=== PATIENT | male | born 1965 | race Caucasian/White ===

== ENCOUNTER → 2018-04-17 17:53 | Outpatient (CLI) | payer MEDICARE, SELFPAY ==
[2018-04-17 19:47] LABS: Amphetamine/Metha Screen,Urine Negative ng/mL (<1000); Barbiturates Screen,Urine Negative ng/mL (<200); Benzodiazepines Screen,Urine Negative ng/mL (<200); Cannabinoid Screen,Urine Negative ng/mL (<50); Cocaine Screen,Urine Negative ng/mL (<300); Methadone Screen,Urine Negative ng/mL (<300); Opiate Screen,Urine Negative ng/mL (<300); Phencyclidine Screen,Urine Negative ng/mL (<25)
== END ==
PROVIDERS: Visit Provider Physician Assistant
DX: G40.909 Epilepsy, unspecified, not intractable, without status epilepticus (principal)
CPT/HCPCS: 80305

== ENCOUNTER → 2021-02-14 15:14 | Outpatient (CLI) | payer MEDICARE, SELFPAY ==
--- NOTE | 2021-02-14 15:21 | XR_ITS ---
PROCEDURE: XR RIBS LT MIN 3V W CXR1V CLINICAL INDICATION: left rib pain s/p fall Fall with injury and pain COMPARISON: No exams were available for comparison FINDINGS: Frontal view of the chest shows no acute finding. Multiple views of the left ribs shows no evidence displaced fracture dislocation, lytic, or blastic change. Incidental note is made some curvilinear calcification along the humeral head medially. IMPRESSION: No acute findings. Dictated by: Jamaal Dillon MD 02/14/2021 16:02 Jamaal Dillon MD in OV 02/14/2021 16:02
[2021-02-14 16:13] LABS: Basophils # 0.1 K/mm3 (0-0.2); Basophils % 0.9 % (0.1-2.0); Eosinophils # 0.2 K/mm3 (0.0-0.4); Eosinophils % 2.5 % (0.1-12.0); Hematocrit 42.6 % (42.0-52.0); Hemoglobin 14.1 g/dL (14.1-18.0); Lymphocytes # 2.3 K/mm3 (0.7-4.5); Lymphocytes % 35.5 % (10-50); Mean Corpuscular Volume 100.1 fl (80-94); Mean Platelet Volume 8.3 fl (7.4-10.4); Monocytes # 0.3 K/mm3 (0.1-1.0); Neutrophils # 3.7 K/mm3 (1.8-7.8); Neutrophils % 56.1 % (37.0-80.0); Platelet Count 220 K/mm3 (142-424); Red Blood Count 4.26 M/mm3 (4.60-6.20); Red Cell Distribution Width 12.8 % (11.5-17.5); White Blood Count 6.6 K/mm3 (4.8-10.8)
[2021-02-14 18:13] LABS: Alanine Aminotransferase 12 U/L (12-78); Albumin Level 4.5 g/dl (3.5-5.0); Albumin/Globulin Ratio 1.4 (1.1-1.8); Alkaline Phosphatase 81 U/L (38-126); Anion Gap 14.3 mEq/L (5-15); Aspartate Amino Transferase 23 U/L (17-59); Bilirubin,Total 0.6 mg/dl (0.2-1.3); Blood Urea Nitrogen 10 mg/dl (9-20); Calcium 9.1 mg/dl (8.4-10.2); Carbamazepine (Tegretol) 7.2 ug/ml (4.0-12.0); Carbon Dioxide 29 mmol/L (22.0-30.0); Chloride 100 mmol/L (98-107); Estimated Glomerular Filt Rate 117 ml/min (>60); GFR (African American) 141 ML/MIN (>60); Globulin 3.2 g/dL (1.3-3.2); Glucose 100 mg/dl (74-100); Phenytoin (Dilantin) 19.3 ug/ml (10-20); Potassium 4.3 mmoL/L (3.5-5.1); Sodium 139 mmol/L (136-145); Total Protein,Serum 7.7 g/dl (6.3-8.2)
[2021-02-14 18:38] LABS: Prostate Specific Ag Screen 0.7 ng/ml (0.0-4.0)
[2021-02-15 10:51] LABS: Vitamin B12 185 pg/mL (239-931)
[2021-02-15 10:56] LABS: Folate 4.06 ng/mL
[2021-02-18 16:13] LABS: Levetiracetam (Keppra) <1.0 ug/mL (10.0-40.0)
== END ==
PROVIDERS: Visit Provider Physician Assistant
DX: G40.909 Epilepsy, unspecified, not intractable, without status epilepticus (principal); Z12.5 Encounter for screening for malignant neoplasm of prostate; M54.12 Radiculopathy, cervical region; F41.9 Anxiety disorder, unspecified; R07.81 Pleurodynia; R89.9 Unspecified abnormal finding in specimens from other organs, systems and tissues
CPT/HCPCS: 71101; 80053; 80156; 80177; 80185; 82607; 82746; 84443; 85025; G0103

== ENCOUNTER → 2021-04-28 13:05 | Outpatient (CLI) | payer MEDICARE, SELFPAY | PROVIDERS: PCP Physician Assistant; Visit Provider Nurse Practitioner | DX: Z20.822 Contact with and (suspected) exposure to COVID-19 (principal) | CPT/HCPCS: C9803; U0003; U0005 ==

== ENCOUNTER → 2021-05-05 16:10 | Outpatient (CLI) | payer MEDICARE, SELFPAY | PROVIDERS: PCP Physician Assistant; Visit Provider Nurse Practitioner | DX: Z20.822 Contact with and (suspected) exposure to COVID-19 (principal) | CPT/HCPCS: C9803; U0003; U0005 ==

== ENCOUNTER → 2021-07-13 17:35 | Outpatient (CLI) | payer MEDICARE, SELFPAY ==
[2021-07-13 18:50] LABS: Amphetamine/Metha Screen,Urine Negative ng/ml (<1000)
[2021-07-13 18:51] LABS: Barbiturates Screen,Urine Negative ng/ml (<200); Benzodiazepines Screen,Urine Positive ng/ml (<200)
[2021-07-13 18:52] LABS: Cannabinoid Screen,Urine Negative ng/ml (<50)
[2021-07-13 18:53] LABS: Cocaine Screen,Urine Negative ng/ml (<300); Methadone Screen,Urine Negative ng/ml (<300)
[2021-07-13 18:54] LABS: Opiate Screen,Urine Negative ng/ml (<300); Phencyclidine Screen,Urine Negative ng/ml (<25)
== END ==
LOC: LAB.DROPOF 17:36
PROVIDERS: Visit Provider Physician Assistant
DX: M54.12 Radiculopathy, cervical region (principal)
CPT/HCPCS: 80305

== ENCOUNTER → 2021-09-27 16:01 | Outpatient (CLI) | payer MEDICARE, SELFPAY | PROVIDERS: Visit Provider Internal Medicine Gastroenterology | DX: Z01.812 Encounter for preprocedural laboratory examination (principal); Z11.52 Encounter for screening for COVID-19; Z12.11 Encounter for screening for malignant neoplasm of colon | CPT/HCPCS: C9803; U0003; U0005 ==

== ENCOUNTER 2021-09-29 08:55 | Day surgery (SDC) | payer MEDICARE, SELFPAY ==
[2021-09-22 09:52] VITALS: BMI 23.3
[2021-09-29 09:07] VITALS: BP 121/61; PULSE 65; RESP 18; TEMP 36.3; O2SAT 98
--- NOTE | 2021-09-29 09:51 | P.PN_ITS ---
[facility] Anesthesia Checklist - Patient Identification Patient Identification: Arm Band - Structural Data Admitted From: Home Planned Operative Procedure/s: colonoscopy Consent for Planned Operative Procedure(s) Verified: Yes Verified Documents: Surgical Consent, History and Physical - NPO Status Verified Time NPO: 00:00 - Additional verifications Anesthesia Reactions: No - Airway Assessment C-Spine Mobility Assessed: Yes (mp2) TMJ Mobility Assessed: Yes Dentition: Good Dentition - Neurological Assessment Level of Consciousness: Awake, Alert - Anesthesia Plan Anesthesia Risk discussed: Yes Anesthesia Plan: Verified ASA Class: II Anesthesia Type: MAC [facility] History I have reviewed the patient's past medical history: Yes Medical History: Reports:: Anxiety, Migraine, Seizures Denies:: Cancer, Diabetes Mellitus Type 1, Diabetes Mellitus Type 2, Internal Pacemaker, MRSA *Have you ever received a pneumonia vaccine?: No *Have you received a flu vaccine this season?: No Anesthesia experience/problems:: nac Laterality Cases: Right: Arthroscopy Knee Other Surgeries: Yes: Cholecystectomy, Colonoscopy. No: Pacemaker Amputation: No Fractures: No - *Social History Last grade of school completed: GED Smoking Status: Current every day smoker Tobacco Type: cigarettes # Packs/Day (cigarettes): 1 Alcohol Intake: never Substance Use Type: denies use *Occupational Status:: disabled Housing: house Household Members: spouse *Travel in the last 8 weeks: None - Psychiatric History Pschychiatric History:: Reports:: Anxiety Family Hx:: Cancer
[2021-09-29 09:53] VITALS: O2SAT 98
--- NOTE | 2021-09-29 10:10 | HMH.SCOPE ---
- Procedure: Date: 09/29/21 Patient Date of :: 1965 Procedure Performed:: Colonoscopy and snare polypectomy Indications:: Rectal bleeding Performing Provider:: Serena Recio MD Referring Provider:: Junie Mason PA-C Sedation:: Propofol Procedure:: After placing the patient in the left lateral decubitus position, the colonoscopy was gently inserted into the rectum and under direct visualization advanced to the cecum which was identified by transillumination in the right lower quadrant, identification of the ileocecal valve, appendiceal orifice, and cecal strap. Color, texture, mucosa, and anatomy of the colon were carefully examined with the scope. Findings:: Anal canal: normal, prolapsing hemorrhoids Rectum: normal Sigmoid colon: normal without polyps or inflammatory changes Descending colon: 0.6 cm adenomatous polyp snared and removed Splenic flexure: normal Transverse colon: normal without polyps or inflammatory changes Hepatic flexure: normal Ascending colon: normal without polyps or inflammatory changes Cecum: normal Terminal ileum: not visualized Impression : Polyp of descending colon Prolapsing external hemorrhoids Specimens:: Polyp of descending colon Recommendations:: Repeat colonoscopy exam in about THREE years or so, sooner if clinically indicated Complications:: None Estimated blood obtained (mL): 0
[2021-09-29 10:11] VITALS: BP 88/54; PULSE 60; RESP 16; TEMP 36.1; O2SAT 96
[2021-09-29 10:21] VITALS: BP 129/64; PULSE 65; RESP 16; TEMP 36.1; O2SAT 98
[2021-09-29 10:31] VITALS: BP 133/75; PULSE 59; RESP 16; TEMP 36.1; O2SAT 99
[2021-09-29 10:54] VITALS: BP 126/79; PULSE 58; RESP 16; TEMP 36.1; O2SAT 98
== END 2021-09-29 10:54 | disposition home or self-care (01) ==
LOC: OUTP 08:57
PROVIDERS: PCP Physician Assistant; Visit Provider Internal Medicine Gastroenterology
PROC: 0DJD8ZZ Inspection of Lower Intestinal Tract, Via Natural or Artificial Opening Endoscopic (ICD-10-PCS; CPT 45378; principal; 2021-09-29 10:00)
DX: K63.5 Polyp of colon (principal); K64.9 Unspecified hemorrhoids; K62.5 Hemorrhage of anus and rectum; Z88.8 Allergy status to other drugs, medicaments and biological substances; Z79.899 Other long term (current) drug therapy; R56.9 Unspecified convulsions
CPT/HCPCS: 45385; 88305

== ENCOUNTER → 2022-01-25 19:25 | Outpatient (CLI) | payer MEDICARE, SELFPAY ==
[2022-01-25 15:57] LABS: Alanine Aminotransferase 12 U/L (12-78); Albumin Level 4.2 g/dl (3.5-5.0); Albumin/Globulin Ratio 1.6 (1.1-1.8); Alkaline Phosphatase 112 U/L (38-126); Anion Gap 10.2 mEq/L (5-15); Aspartate Amino Transferase 25 U/L (17-59); Bilirubin,Total 0.3 mg/dl (0.2-1.3); Blood Urea Nitrogen 11 mg/dl (9-20); Calcium 8.6 mg/dl (8.4-10.2); Carbon Dioxide 28 mmol/L (22.0-30.0); Chloride 106 mmol/L (98-107); Chol/HDL Ratio 4.3 (1-3.5); Cholesterol 183 mg/dl (140-200); Estimated Glomerular Filt Rate 116 ml/min (>60); GFR (African American) 141 ML/MIN (>60); Globulin 2.7 g/dL (1.3-3.2); Glucose 94 mg/dl (74-100); HDL Cholesterol 43 mg/dl (40-60); Phenytoin (Dilantin) 10.7 ug/ml (10-20); Potassium 4.2 mmoL/L (3.5-5.1); Sodium 140 mmol/L (136-145); Total Protein,Serum 6.9 g/dl (6.3-8.2); Triglycerides 141 mg/dl (30-150); VLDL Cholesterol 28 mg/dL (0-40)
[2022-01-25 16:09] LABS: Basophils # 0.1 K/mm3 (0-0.2); Basophils % 1.1 % (0.1-2.0); Eosinophils # 0.2 K/mm3 (0.0-0.4); Eosinophils % 3.9 % (0.1-12.0); Hematocrit 40.8 % (42.0-52.0); Hemoglobin 13.3 g/dL (14.1-18.0); Lymphocytes # 1.5 K/mm3 (0.7-4.5); Lymphocytes % 33.7 % (10-50); Mean Corpuscular HGB Conc 32.5 g/dL (31.8-35.4); Mean Corpuscular Hemoglobin 32.8 pg (27.0-31.2); Mean Corpuscular Volume 100.9 fl (80-94); Mean Platelet Volume 8.7 fl (7.4-10.4); Monocytes # 0.4 K/mm3 (0.1-1.0); Monocytes % 8.4 % (1.7-9.3); Neutrophils # 2.4 K/mm3 (1.8-7.8); Neutrophils % 52.9 % (37.0-80.0); Platelet Count 213 K/mm3 (142-424); Red Blood Count 4.04 M/mm3 (4.60-6.20); Red Cell Distribution Width 12.7 % (11.5-17.5); White Blood Count 4.5 K/mm3 (4.8-10.8)
[2022-01-25 16:25] LABS: Thyroid Stimulating Hormone 1.33 uIU/mL (0.465-4.68)
[2022-01-25 16:44] LABS: Vitamin B12 397 pg/mL (239-931)
[2022-01-27 09:48] LABS: Direct LDL Cholesterol 106 mg/dL (100-129)
[2022-01-30 18:12] LABS: Levetiracetam (Keppra) 23.8 ug/mL (10.0-40.0); Oxcarbazepine <1 ug/mL (10-35)
== END ==
LOC: LAB.DROPOF 19:26
PROVIDERS: PCP Physician Assistant; Visit Provider Physician Assistant
DX: G40.909 Epilepsy, unspecified, not intractable, without status epilepticus; R41.3 Other amnesia
CPT/HCPCS: 80053; 80061; 80177; 80183; 80185; 82607; 84443; 85025

== ENCOUNTER → 2022-02-03 16:11 | Outpatient (CLI) | payer MEDICARE, SELFPAY ==
--- NOTE | 2022-02-03 16:15 | XR_ITS ---
FINAL REPORT CLINICAL HISTORY: back pain, extending down into rt leg FINDINGS: LUMBAR SPINE 5 views of the lumbar spine were obtained. There is no evidence of fracture or dislocation. The vertebral alignment is normal. There are mild degenerative changes with osteophytes. No paraspinous soft tissue abnormalities identified. IMPRESSION: Mild degenerative change with no acute bony abnormality. Reviewed, Interpreted and Dictated by Cal Dill III, MD Transcribed by Misa Fernandez Authenticated and [facility]
--- NOTE | 2022-02-03 16:15 | XR_ITS ---
FINAL REPORT CLINICAL HISTORY: neck pain, rt arm pain COMPARISON: August 16, 2018 FINDINGS: CERVICAL SPINE 5 views were obtained. There is no acute fracture. There is no malalignment. There are moderate degenerative changes at C5-6 and C6-7 with osteophytes. There is moderate bilateral C6-7 and mild left C5-6 neural foraminal narrowing. There is no soft tissue abnormality. IMPRESSION: Degenerative change as described, not significantly changed from the prior exam. Reviewed, Interpreted and Dictated by Cal Dill III, MD Transcribed by Misa Fernandez Authenticated and [facility]
== END ==
PROVIDERS: PCP Physician Assistant; Visit Provider Physician Assistant
DX: M54.50 Low back pain, unspecified (principal); M54.2 Cervicalgia
CPT/HCPCS: 72050; 72110

== ENCOUNTER → 2022-10-04 07:58 | Outpatient (CLI) | payer MEDICARE, SELFPAY ==
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
== END ==
LOC: RAD 07:58
PROVIDERS: PCP Physician Assistant; Visit Provider Physician Assistant
DX: G40.909 Epilepsy, unspecified, not intractable, without status epilepticus (principal)
CPT/HCPCS: 70250

== ENCOUNTER → 2022-10-24 13:15 | Outpatient (CLI) | payer MEDICARE, SELFPAY ==
--- NOTE | 2022-10-24 13:16 | CT_ITS ---
FINAL REPORT TECHNIQUE: Axial images through the lumbar spine was performed by computed tomography. Sagittal and coronal reformatted images were obtained and reviewed. This study was performed with techniques to keep radiation doses as low as reasonably achievable (ALARA). Individualized dose reduction techniques using automated exposure control or adjustment of mA and/or kV according to the patient's size were employed. CLINICAL HISTORY: low back pain..years of heavy lifting FINDINGS: No fracture is present. Alignment is normal. L1-L2: Mild diffuse disc bulge is present without canal stenosis. L2-L3: Mild diffuse disc bulge is present without canal stenosis. L3-L4: Moderate diffuse disc bulge is present. There is ligamentum flavum hypertrophy. There is mild central canal stenosis and moderate bilateral neural foraminal narrowing L4-L5: Moderate diffuse disc bulge is present. There is ligamentum flavum hypertrophy. There is mild central canal stenosis and moderate bilateral neural foraminal narrowing L5-S1: No significant disc disease is present. There is no canal stenosis. IMPRESSION: Degenerative disc disease as above. Reviewed, Interpreted and Dictated by George Flores MD Transcribed by Nisha Jernigan Authenticated and [facility] [place] [place]
--- NOTE | 2022-10-24 13:16 | CT_ITS ---
FINAL REPORT TECHNIQUE: Thin section axial CT with sagittal reconstruction without contrast. This study was performed with techniques to keep radiation doses as low as reasonably achievable (ALARA). Individualized dose reduction techniques using automated exposure control or adjustment of mA and/or kV according to the patient's size were employed. CLINICAL HISTORY: neck pain..years of heavy lifting FINDINGS: No fracture is seen. Alignment is normal. C2-3: Unremarkable C3-4: Small central disc protrusion. C4-5: Small central disc protrusion. C5-6: Mild diffuse disc bulge with mild endplate spurring. Mild bilateral neural foraminal narrowing. C6-7: Mild diffuse disc bulge with mild endplate spurring. Mild bilateral neural foraminal narrowing. C7-T1: Unremarkable. IMPRESSION: Degenerative disc disease as above. Reviewed, Interpreted and Dictated by George Flores MD Transcribed by Nisha Jernigan Authenticated and [facility]
== END ==
LOC: RAD 13:16
PROVIDERS: PCP Physician Assistant; Visit Provider Physician Assistant
DX: M50.90 Cervical disc disorder, unspecified, unspecified cervical region (principal); M54.10 Radiculopathy, site unspecified; M54.12 Radiculopathy, cervical region
CPT/HCPCS: 72125; 72131

== ENCOUNTER → 2023-03-21 16:18 | Outpatient (CLI) | payer MEDICARE, SELFPAY ==
[2023-03-21 15:17] LABS: Basophils % 0.5 % (0.1-2.0); Eosinophils # 0.3 K/mm3 (0.0-0.4); Eosinophils % 4.5 % (0.1-12.0); Hemoglobin 13.8 g/dL (14.1-18.0); Lymphocytes # 1.6 K/mm3 (0.7-4.5); Lymphocytes % 27.6 % (10-50); Mean Corpuscular HGB Conc 32.2 g/dL (31.8-35.4); Mean Corpuscular Volume 96.3 fl (80-94); Mean Platelet Volume 8.9 fl (7.4-10.4); Monocytes # 0.4 K/mm3 (0.1-1.0); Monocytes % 6.9 % (1.7-9.3); Neutrophils # 3.5 K/mm3 (1.8-7.8); Neutrophils % 60.4 % (37.0-80.0); Platelet Count 181 K/mm3 (142-424); Red Blood Count 4.47 M/mm3 (4.60-6.20); Red Cell Distribution Width 12.8 % (11.5-17.5); White Blood Count 5.8 K/mm3 (4.8-10.8)
[2023-03-21 15:26] LABS: Alanine Aminotransferase 20 U/L (12-78); Albumin Level 4.4 g/dl (3.5-5.0); Albumin/Globulin Ratio 1.3 (1.1-1.8); Alkaline Phosphatase 80 U/L (38-126); Anion Gap 13.2 mEq/L (5-15); Aspartate Amino Transferase 27 U/L (17-59); Bilirubin,Total 0.2 mg/dl (0.2-1.3); Blood Urea Nitrogen 14 mg/dl (9-20); Calcium 8.9 mg/dl (8.4-10.2); Carbon Dioxide 29 mmol/L (22.0-30.0); Chloride 103 mmol/L (98-107); Chol/HDL Ratio 3.9 (1-3.5); Cholesterol 216 mg/dl (140-200); Estimated Glomerular Filt Rate 99 ml/min (>60); GFR (African American) 120 ML/MIN (>60); Globulin 3.3 g/dL (1.3-3.2); Glucose 100 mg/dl (74-100); HDL Cholesterol 56 mg/dl (40-60); Potassium 4.2 mmoL/L (3.5-5.1); Sodium 141 mmol/L (136-145); Total Protein,Serum 7.7 g/dl (6.3-8.2); Triglycerides 135 mg/dl (30-150); VLDL Cholesterol 27 mg/dL (0-40)
[2023-03-21 15:37] LABS: Direct LDL Cholesterol 109.25 mg/dL (100-129)
[2023-03-21 15:41] LABS: 25-OH Vitamin D, Total 19.6 ng/mL (30-100)
[2023-03-21 15:52] LABS: Prostate Specific Ag Screen 0.9 ng/ml (0.0-4.0); Thyroid Stimulating Hormone 1.43 uIU/mL (0.465-4.68)
== END ==
LOC: LAB.DROPOF 16:18
PROVIDERS: PCP Physician Assistant; Visit Provider Physician Assistant
DX: R60.0 Localized edema (principal); G40.909 Epilepsy, unspecified, not intractable, without status epilepticus; E78.5 Hyperlipidemia, unspecified; Z12.5 Encounter for screening for malignant neoplasm of prostate; E55.9 Vitamin D deficiency, unspecified
CPT/HCPCS: 80053; 80061; 82306; 84443; 85025; G0103

== ENCOUNTER 2023-04-05 15:36 | Emergency (ER) | payer MEDICARE, SELFPAY ==
--- NOTE | 2023-04-05 15:36 | ECG_ITS ---
APPROVED REPORT Exam: Resting ECG HR:54 bpm ECG Measurements Heart Rate 54 AXES IL 152 P 74 QRSd 97 QRS 71 QT 423 T 56 QTc 409 Conclusion SINUS BRADYCARDIA BORDERLINE ECG UNCONFIRMED REPORT Electronically signed by : Christofer Murrell MD 04/06/2023 14:28:25
[2023-04-05 15:37] VITALS: BP 141/74; PULSE 65; RESP 16; TEMP 36.6; O2SAT 100; BMI 23.6
[2023-04-05 15:44] VITALS: BP 146/73; PULSE 64; RESP 18; O2SAT 100
[2023-04-05 15:45] VITALS: PULSE 54
--- NOTE | 2023-04-05 15:56 | HMH.EDGENADL ---
Discharge Plan Disposition Patient Disposition: Home, Self-Care Prescriptions Prescriptions: No Action carbamazepine 200 mg tablet 400 mg PO BID Qty: 360 2RF ibuprofen 800 mg tablet 800 mg PO Q8H PRN (Reason: pain) Qty: 30 2RF levetiracetam 750 mg tablet See Rx Instructions .Route .COMPLEX Qty: 360 3RF Rx Instructions: TAKE 2 TABLETS BY MOUTH EVERY 12 HOURS FOR SEIZURES diazepam 5 mg tablet 5 mg PO QHS PRN (Reason: seizures) Qty: 30 0RF terbinafine HCl 250 mg tablet 250 mg PO DAILY Qty: 30 0RF sulfamethoxazole-trimethoprim [Bactrim DS] 800-160 mg tablet 1 tab PO BID 10 Days Qty: 20 0RF ergocalciferol (vitamin D2) 1,250 mcg (50,000 unit) capsule 1,250 mcg PO WEEKLY Qty: 14 3RF cholecalciferol (vitamin D3) 50 mcg (2,000 unit) capsule 50 mcg PO DAILY Qty: 90 3RF atorvastatin 10 mg tablet 10 mg PO DAILY Qty: 90 3RF phenytoin sodium extended 100 mg capsule 200 mg PO BID Qty: 120 2RF Referrals Follow up/Referrals: Junie Mason PA [Primary Care Provider] - See instructions Blayne Jay MD [Staff Physician] - See instructions Activity Restrictions/Add. Instructions Additional Instructions/Restrictions: At this time it was felt you are safe to be discharged home. If new or worsening symptoms please do not hesitate to return the emergency department. Please call and schedule follow-up with cardiology as soon as you are able. Clinical Impressions Clinical Impression: Chest pain Discharge ED Provider: Amarjit Sutton General Adult HPI General Chief complaint: Chest Pain Stated complaint: chest pain Time Seen by Provider: 04/05/23 15:56 Mode of Arrival: EMS Source of Information: Patient Limitations: No Limitations Description of Symptoms (Recalled from ER Triage Doc. by RN): Presents to ED with c/o substernal chest pain that started last night at approx 2300 patient took 324mg of Aspirin and went ot sleep. Paitent reports he started having chest pain again 1 hour [employer] that radiates into his right arm as well as SOA and took 324mg Aspirin with no relief. En route patient recieved 1 Nitro with no relief. Denies cardiac hx. History of Present Illness HPI narrative: Patient is a 58-year-old male with past medical history of seizure disorder on antiepileptics, previous chest pain who presents emergency department for evaluation of chest pain. Onset was acute, 11 PM, intermittent, substernal, radiating to his back with feeling cold on his right upper extremity. Due to persistent intermittent symptoms he presents here for continued evaluation. Currently patient is complaining of no pain. With his back to his seizures they are at his baseline. No other acute complaints. Related Data Previous Rx's Medication Instructions Recorded carbamazepine 200 mg tablet 400 mg PO BID seizure #360 tabs 05/09/22 ibuprofen 800 mg tablet 800 mg PO Q8H PRN pain #30 tabs 05/09/22 levetiracetam 750 mg tablet See Rx Instructions .Route 05/09/22 .COMPLEX seizures #360 tabs diazepam 5 mg tablet 5 mg PO QHS PRN seizures #30 tabs 03/21/23 sulfamethoxazole 800 1 tab PO BID 10 days #20 tabs 03/21/23 mg-trimethoprim 160 mg tablet (Bactrim DS) terbinafine HCl 250 mg tablet 250 mg PO DAILY #30 tabs 03/21/23 atorvastatin 10 mg tablet 10 mg PO DAILY #90 tabs 03/26/23 cholecalciferol (vitamin D3) 50 50 mcg PO DAILY #90 caps 03/26/23 mcg (2,000 unit) capsule ergocalciferol (vitamin D2) 1,250 1,250 mcg PO WEEKLY #14 caps 03/26/23 mcg (50,000 unit) capsule phenytoin sodium extended 100 mg 200 mg PO BID #120 caps 03/28/23 capsule Allergies Allergy/AdvReac Type Severity Reaction Status Date / Time sumatriptan [From IMITREX] Allergy Unknown Verified 03/21/23 11:04 [facility] Disclaimer: The information contained in this section may have been updated after the patient was seen, as this information can be updated by other users. Medical History (Reviewed 03/21/23 @ 11:
--- NOTE | 2023-04-05 15:57 | XR_ITS ---
PROCEDURE INFORMATION: Exam: XR Chest Exam date and time: 04/05/2023 4:35 PM Age: 58 years old Clinical indication: Chest pressure; Patient HX: Pain on inspiration while doing xray; Additional info: Chest pain TECHNIQUE: Imaging protocol: Radiologic exam of the chest. Views: 2 views. COMPARISON: CT ANGIO CHEST 04/05/2023 4:24 PM FINDINGS: Lungs: Lung garcia are aerated and clear. No infiltrates or overt CHF. Pleural spaces: Unremarkable. No pleural effusion. No pneumothorax. Heart/Mediastinum: Unremarkable. No cardiomegaly. Bones/joints: Unremarkable for age. IMPRESSION: Negative chest. No active disease.
--- NOTE | 2023-04-05 16:00 | PC.NURSE ---
at BS. patient provided warm blanket. Updated and patient on plan of care.
[2023-04-05 16:01] VITALS: BP 131/66; PULSE 55; RESP 16; O2SAT 100
[2023-04-05 16:11] LABS: Basophils % 0.6 % (0.1-2.0); Eosinophils # 0.2 K/mm3 (0.0-0.4); Eosinophils % 4.2 % (0.1-12.0); Hematocrit 37.9 % (42.0-52.0); Hemoglobin 13.3 g/dL (14.1-18.0); Lymphocytes # 2.1 K/mm3 (0.7-4.5); Lymphocytes % 37.5 % (10-50); Mean Corpuscular HGB Conc 35.1 g/dL (31.8-35.4); Mean Corpuscular Hemoglobin 32.7 pg (27.0-31.2); Mean Corpuscular Volume 93.1 fl (80-94); Mean Platelet Volume 8.1 fl (7.4-10.4); Monocytes # 0.3 K/mm3 (0.1-1.0); Monocytes % 5.9 % (1.7-9.3); Neutrophils # 2.9 K/mm3 (1.8-7.8); Neutrophils % 51.8 % (37.0-80.0); Platelet Count 202 K/mm3 (142-424); Red Blood Count 4.07 M/mm3 (4.60-6.20); Red Cell Distribution Width 12.8 % (11.5-17.5); White Blood Count 5.6 K/mm3 (4.8-10.8)
[2023-04-05 16:12] LABS: Chloride 103 mmol/L (98-107); Potassium 3.8 mmoL/L (3.5-5.1); Sodium 139 mmol/L (136-145)
[2023-04-05 16:14] LABS: Blood Urea Nitrogen 12 mg/dl (9-20); Creatinine Clearance Estimated 107 mL/min (50-200); Estimated Glomerular Filt Rate 99 ml/min (>60); GFR (African American) 120 ML/MIN (>60)
--- NOTE | 2023-04-05 16:14 | CT_ITS ---
PROCEDURE INFORMATION: Exam: CTA Chest With Contrast Exam date and time: 04/05/2023 4:24 PM Age: 58 years old Clinical indication: Pain; Chest pressure; Additional info: Cp rad to back and rue pain TECHNIQUE: Imaging protocol: Computed tomographic angiography of the chest with contrast. Exam focused on the arteries. 3D rendering (Not supervised by radiologist): MIP and/or 3D reconstructed images were created by the technologist. Radiation optimization: All CT scans at this facility use at least one of these dose optimization techniques: automated exposure control; mA and/or kV adjustment per patient size (includes targeted exams where dose is matched to clinical indication); or iterative reconstruction. Contrast material: ISOVUE 370; Contrast volume: 100 ml; Contrast route: INTRAVENOUS (IV); REPORTING DATA: Count of CT and Cardiac NM exams in prior 12 months: This patient has received 2 known CTs and 0 known cardiac nuclear medicine studies in the 12 months prior to the current study. COMPARISON: CR XR RIBS LT MIN 3V W CXR1V 02/14/2021 3:25 PM FINDINGS: Pulmonary arteries: Pulmonary vasculature is adequately opacified without filling defects or other evidence of acute pulmonary embolism. Aorta: Thoracic aorta is unremarkable. No aortic aneurysm or evidence of aortic dissection. Lungs: Unremarkable. No consolidation. No masses. Pleural spaces: Unremarkable. No pneumothorax. No pleural effusion. Heart: Unremarkable. No cardiomegaly. No pericardial effusion. Lymph nodes: Unremarkable. No enlarged lymph nodes. Bones/joints: Unremarkable. No acute fracture. Soft tissues: Unremarkable. IMPRESSION: Negative CT angiogram of the chest. No evidence of acute pulmonary embolism.
[2023-04-05 16:15] LABS: Alanine Aminotransferase 24 U/L (12-78); Albumin Level 4.8 g/dl (3.5-5.0); Albumin/Globulin Ratio 1.5 (1.1-1.8); Alkaline Phosphatase 81 U/L (38-126); Anion Gap 12.8 mEq/L (5-15); Aspartate Amino Transferase 35 U/L (17-59); Bilirubin,Total 0.4 mg/dl (0.2-1.3); Carbon Dioxide 27 mmol/L (22.0-30.0); Globulin 3.3 g/dL (1.3-3.2); Total Protein,Serum 8.1 g/dl (6.3-8.2)
[2023-04-05 16:16] LABS: Calcium 8.9 mg/dl (8.4-10.2); Glucose 107 mg/dl (74-100)
[2023-04-05 16:30] LABS: Troponin I < 0.01 ng/ml (0.00-0.034)
--- NOTE | 2023-04-05 16:31 | PC.NURSE ---
pt to CT
[2023-04-05 17:00] VITALS: BP 121/68; PULSE 54; RESP 18; O2SAT 100
[2023-04-05 18:07] LABS: Troponin I < 0.01 ng/ml (0.00-0.034)
[2023-04-05 19:04] VITALS: BP 113/64; PULSE 52; RESP 12; TEMP 36.7
== END 2023-04-05 19:04 | disposition home or self-care (01) ==
PROVIDERS: Emergency Provider Emergency Medicine; PCP Physician Assistant
DX: R07.9 Chest pain, unspecified (principal); R00.1 Bradycardia, unspecified; G40.909 Epilepsy, unspecified, not intractable, without status epilepticus; Z87.891 Personal history of nicotine dependence
CPT/HCPCS: 71046; 71275; 80053; 84484; 85025; 93005; 99285; Q9967

== ENCOUNTER → 2023-04-10 10:43 | Outpatient (CLI) | payer MEDICARE, SELFPAY | LOC: RT 10:44 | PROVIDERS: PCP Physician Assistant; Visit Provider Physician Assistant | DX: R00.2 Palpitations (principal); R06.09 Other forms of dyspnea; R07.9 Chest pain, unspecified; R42 Dizziness and giddiness; F41.9 Anxiety disorder, unspecified | CPT/HCPCS: 93270 ==

== ENCOUNTER → 2023-04-27 10:00 | Outpatient (CLI) | payer MEDICARE, SELFPAY ==
--- NOTE | 2023-04-27 10:02 | CA_ITS ---
FINAL REPORT TECHNIQUE: Camara scale, color and spectral doppler images of the bilateral carotid arteries were obtained. CLINICAL HISTORY: DIZZINESS, FINDINGS: Peak systolic velocity in the right internal carotid artery is 83 cm/sec. The internal carotid to common carotid artery ratio is 1.0. There is no significant carotid artery stenosis and no significant plaque formation. The right vertebral artery is normal in direction. Peak systolic velocity in the left internal carotid artery is 117 cm/sec. The internal carotid to common carotid artery ratio is 1.6. There is no significant carotid artery stenosis and no significant plaque formation. The left vertebral artery is normal in direction. IMPRESSION: Less than 50% bilateral carotid artery stenosis. Reviewed, Interpreted and Dictated by Makenna Browning MD Transcribed by Cande Gilliam Authenticated and [facility]
--- NOTE | 2023-04-27 10:02 | CA_ITS ---
APPROVED REPORT EXAM: Comprehensive 2D, Doppler, and color-flow Echocardiogram Distribution Operations Manager: Laverne Mathews RVT Ht: 5 ft 10 in Wt: 168lbs BSA: 1.94 BP: 120/49 mmHg Indications: CP,SOA,PALPS,FATIGUE,SOA 2D Dimensions LVOT 2.36 cm (M/F) 1.5-2.5 LA Volume 30.40 mL LA Volume Index 15.67 mL/m2 (M/F) 16-34 M-Mode Dimensions RVDd 2.62 cm (0.9-2.6) LA Diam 3.07 cm (1.9-4.0) LVDd 4.90 cm (3.5-5.7) Ao Diam 3.35 cm (2.0-3.7) LVDs 3.65 cm (3.5-5.7) IVSd 0.68 cm (0.6-1.1) PWd 0.68 cm (0.6-1.1) EF (Teich) 50.10% FS 25.50% EDV (Teich) 112.80 mL TAPSE 2.12 (<1.7) ESV (Teich) 56.30 mL LV Diastology E Decel Time 267.00 (160-240 msec) E/A Ratio 1.0 MED E' 9.00 (< 7 cm/sec) E'/MED E' Ratio 9.63 (>14) LAT E' 8.80 (<10 cm/sec) E/LAT E' Ratio 9.85 (>14) Aortic Valve LVOT Max 107.00 (70-110 cm/s) LVOT VTI 25.53 cm AoV Peak John. 120.00 (50-130 cm/s) AO Peak GR. 5.80 mmHg AO Mean GR. 3.00 (<5 mmHg) AO VTI 24.37 (18-25 cm) ISADORA (VTI) 4.58 (2.5-4.5 cm2) Mitral Valve MV E Max John. 87.00 (40-130 cm/s) MV A Velocity 85.00 (40-130 cm/s) E/A Ratio 1.02 MV Decel. Time 267.00 (160-240 ms) MV PHT 78.00 ms Pulmonary Valve PV Peak Velocity 66.00 (50-150 cm/s) Tricuspid Valve TR P. Velocity 217.00 cm/s RAP Estimate 10.00 mmHg RVSP 28.80 mmHg Left Ventricle The left ventricle is normal size. The left ventricular systolic function is normal. The left ventricular ejection fraction is within the normal range. There is increased LV wall thickness. There is septal flattening, suggestive of increased RV volume/pressure overload. LVEF is 55%. Right Ventricle Right ventricle is moderately dilated. The right ventricular systolic function is mildly reduced. There is increased RV wall thickness. Atria The left atrium size is normal. The right atrium size is normal. There is no Doppler evidence of interatrial shunt. Aortic Valve The aortic valve leaflets are mildly thickened. There is no aortic valvular stenosis. No aortic regurgitation is present. Mitral Valve The mitral valve leaflets are mildly thickened. No evidence of mitral valve stenosis. Mild mitral regurgitation. Tricuspid Valve The tricuspid valve leaflets are thin and pliable. Trace tricuspid regurgitation. There is insufficient TR jet to estimate RVSP. Pulmonic Valve The pulmonary valve is normal in structure. Trace pulmonic regurgitation. Great Vessels The aortic root is normal in size. The ascending aorta is normal in size. IVC is normal in size and collapses >50% with inspiration. Pericardium There is no pericardial effusion. Other Information Study Quality: Fair Conclusion Normal LV systolic function. Moderate RV dilation with mild reduction in RV systolic function. Mild MR. Electronically signed by : Ryann Dalton MD 05/01/2023 19:23:44
== END ==
PROVIDERS: PCP Physician Assistant; Visit Provider Physician Assistant
DX: F41.9 Anxiety disorder, unspecified (principal); R00.2 Palpitations; R06.00 Dyspnea, unspecified; R07.9 Chest pain, unspecified; R42 Dizziness and giddiness
CPT/HCPCS: 93306; 93880

== ENCOUNTER 2023-05-01 09:51 | Emergency (ER) | payer MEDICARE, SELFPAY ==
[2023-05-01] VITALS (7 sets, daily range): BP systolic 106–119; BP diastolic 57–70; PULSE 50–70; RESP 17–18; TEMP 36.4; O2SAT 94–100; BMI 24.9
--- NOTE | 2023-05-01 | IR_ITS ---
APPROVED REPORT Patient Location: Inpatient Hay Stacker: BENJAMIN Piedra RT (R) PROCEDURES Left heart catheterization Left ventriculogram Selective coronary angiogram INDICATION Unstable angina, Dynamic EKG changes Informed consent was obtained prior to the procedure. COMPLICATIONS None Estimated Blood Loss: Less than 10 ml TECHNIQUE One percent lidocaine used to anesthetize the right anterior aspect of the wrist. The right radial artery was accessed via the Seldinger technique. A 6 Yoruba sheath was placed in the right radial artery. 2.5 mg of Verapamil, 800 mcg of nitroglycerin, 1mg Lidocaine and 5000 U Heparin were given through the arterial sheath. The papa catheter was also used to perform left heart catheterization, left ventriculogram and selective coronary angiogram. At the end of the procedure the sheath was removed good hemostasis was achieved using Traclet band, patient was transferred to the postop holding area in stable condition. 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 Evaluation of noncardiac symptoms 2. Is reasonable to empirically treat with beta-blockers and or diltiazem or verapamil given the myocardial bridge. Electronically signed by : Blayne Jay MD 05/01/2023 11:07:07
--- NOTE | 2023-05-01 09:58 | XR_ITS ---
FINAL REPORT CLINICAL HISTORY: cp COMPARISON: 04/05/2023 FINDINGS: The heart size is normal. The mediastinum is normal. There is no focal infiltrate or edema. Mild chronic appearing changes are present in the lung garcia bilaterally. There are no pleural effusions. There is no pneumothorax. There is no osseous abnormality. IMPRESSION: No acute cardiopulmonary process Reviewed, Interpreted and Dictated by Shivam Quintero MD Transcribed by Adilene Clark Authenticated and [facility]
--- NOTE | 2023-05-01 10:01 | PC.NURSE ---
DULCE Comer speaking with Dr. Jay.
--- NOTE | 2023-05-01 10:04 | PC.NURSE ---
waiting nutritional yeast supervisor back from hospitalist.
--- NOTE | 2023-05-01 10:04 | HMH.EDGENADL ---
Discharge Plan Disposition Patient Disposition: Admitted Condition: Fair Prescriptions Prescriptions: No Action carbamazepine 200 mg tablet 400 mg PO BID Qty: 360 2RF ibuprofen 800 mg tablet 800 mg PO Q8H PRN (Reason: pain) Qty: 30 2RF levetiracetam 750 mg tablet See Rx Instructions .Route .COMPLEX Qty: 360 3RF Rx Instructions: TAKE 2 TABLETS BY MOUTH EVERY 12 HOURS FOR SEIZURES diazepam 5 mg tablet 5 mg PO QHS PRN (Reason: seizures) Qty: 30 0RF terbinafine HCl 250 mg tablet 250 mg PO DAILY Qty: 30 0RF sulfamethoxazole-trimethoprim [Bactrim DS] 800-160 mg tablet 1 tab PO BID 10 Days Qty: 20 0RF isosorbide mononitrate 30 mg tablet extended release 24 hr 30 mg PO DAILY Qty: 30 2RF ergocalciferol (vitamin D2) 1,250 mcg (50,000 unit) capsule 1,250 mcg PO WEEKLY Qty: 14 3RF cholecalciferol (vitamin D3) 50 mcg (2,000 unit) capsule 50 mcg PO DAILY Qty: 90 3RF atorvastatin 10 mg tablet 10 mg PO DAILY Qty: 90 3RF phenytoin sodium extended 100 mg capsule 200 mg PO BID Qty: 120 2RF Clinical Impressions Clinical Impression: Right-sided chest pain, Angina pectoris, unstable Discharge ED Provider: Naldo Bennett Adult HPI General Chief complaint: Chest Pain Stated complaint: chest pain Time Seen by Provider: 05/01/23 09:57 History of Present Illness HPI narrative: This 58-year-old male with a history of vertigo, recently being worked up for chest pain and increasing dyspnea on exertion presents to the emergency department from stress test lab with crushing chest pain, shortness of breath. Patient was supposed to receive an exercise stress test, however he was dizzy on arrival so they converted to chemical stress test. He did receive the scan, but became acutely more short of breath, had right-sided chest pain radiating down his right arm and jaw. He received 4 nitroglycerin tablets. He stated after each 1 he had brief improvement of symptoms that then worsened again. He states now that he is in the ER his symptoms are improving but he does continue to have pain. He says he was sweaty and chilled as it was happening. Patient admits he has been having increasing shortness of breath with even mild exertion and occasionally has chest pains like this when it happens. He does have history of heart cath multiple years ago with 30% stenosis identified. No stents. Related Data Previous Rx's Medication Instructions Recorded carbamazepine 200 mg tablet 400 mg PO BID seizure #360 tabs 05/09/22 ibuprofen 800 mg tablet 800 mg PO Q8H PRN pain #30 tabs 05/09/22 levetiracetam 750 mg tablet See Rx Instructions .Route 05/09/22 .COMPLEX seizures #360 tabs diazepam 5 mg tablet 5 mg PO QHS PRN seizures #30 tabs 03/21/23 sulfamethoxazole 800 1 tab PO BID 10 days #20 tabs 03/21/23 mg-trimethoprim 160 mg tablet (Bactrim DS) terbinafine HCl 250 mg tablet 250 mg PO DAILY #30 tabs 03/21/23 atorvastatin 10 mg tablet 10 mg PO DAILY #90 tabs 03/26/23 cholecalciferol (vitamin D3) 50 50 mcg PO DAILY #90 caps 03/26/23 mcg (2,000 unit) capsule ergocalciferol (vitamin D2) 1,250 1,250 mcg PO WEEKLY #14 caps 03/26/23 mcg (50,000 unit) capsule phenytoin sodium extended 100 mg 200 mg PO BID #120 caps 03/28/23 capsule isosorbide mononitrate 30 mg 30 mg PO DAILY #30 tabs 04/10/23 tablet,extended release 24 hr Allergies Allergy/AdvReac Type Severity Reaction Status Date / Time sumatriptan [From IMITREX] Allergy Unknown Verified 04/10/23 10:09 [facility] Disclaimer: The information contained in this section may have been updated after the patient was seen, as this information can be updated by other users. Medical History Foot pain Seizure disorder Vertigo Social History Smoking Status: Former smoker tobacco type: cigarettes packs per day: 1 alcohol intake:
[2023-05-01 10:07] LABS: Basophils % 0.6 % (0.1-2.0); Eosinophils # 0.3 K/mm3 (0.0-0.4); Eosinophils % 4.4 % (0.1-12.0); Hematocrit 37.7 % (42.0-52.0); Hemoglobin 12.8 g/dL (14.1-18.0); Lymphocytes # 1.8 K/mm3 (0.7-4.5); Lymphocytes % 25.5 % (10-50); Mean Corpuscular HGB Conc 33.9 g/dL (31.8-35.4); Mean Corpuscular Hemoglobin 32.8 pg (27.0-31.2); Mean Corpuscular Volume 96.7 fl (80-94); Mean Platelet Volume 8.3 fl (7.4-10.4); Monocytes # 0.4 K/mm3 (0.1-1.0); Monocytes % 5.1 % (1.7-9.3); Neutrophils # 4.6 K/mm3 (1.8-7.8); Neutrophils % 64.4 % (37.0-80.0); Platelet Count 174 K/mm3 (142-424); White Blood Count 7.1 K/mm3 (4.8-10.8)
--- NOTE | 2023-05-01 10:07 | PC.NURSE ---
per can labeler staff, request for us to get pt prepped for can labeler dr. gilmore wants to take this pt to the lab for his next case.
[2023-05-01 10:11] LABS: Chloride 101 mmol/L (98-107); Potassium 3.7 mmoL/L (3.5-5.1); Sodium 138 mmol/L (136-145)
[2023-05-01 10:13] LABS: Blood Urea Nitrogen 22 mg/dl (9-20); Creatinine Clearance Estimated 90 mL/min (50-200); Estimated Glomerular Filt Rate 77 ml/min (>60); GFR (African American) 93 ML/MIN (>60)
[2023-05-01 10:14] LABS: Alanine Aminotransferase 23 U/L (12-78); Albumin Level 4.5 g/dl (3.5-5.0); Albumin/Globulin Ratio 1.5 (1.1-1.8); Alkaline Phosphatase 77 U/L (38-126); Anion Gap 9.7 mEq/L (5-15); Aspartate Amino Transferase 30 U/L (17-59); Calcium 8.2 mg/dl (8.4-10.2); Carbon Dioxide 31 mmol/L (22.0-30.0); Globulin 3.1 g/dL (1.3-3.2); Glucose 163 mg/dl (74-100); Total Protein,Serum 7.6 g/dl (6.3-8.2)
[2023-05-01 10:21] LABS: Bilirubin,Total 0.1 mg/dl (0.2-1.3)
[2023-05-01 10:28] LABS: Troponin I < 0.01 ng/ml (0.00-0.034)
--- NOTE | 2023-05-01 10:34 | PC.NURSE ---
pt to optical laboratory technician via wheelchair
--- NOTE | 2023-05-01 10:37 | PC.NURSE ---
notified care management of admission
--- NOTE | 2023-05-01 10:38 | PC.NURSE ---
Pt's at bedside prior to pt going to labor contractor. She was updated by myself and Dr. Bennett regarding need for cath. Pt's groin and R wrist were clipped and he changed into a gown. Pt's belongings including: clothes, cell phone, belt, shoes, and socks were placed in a pt bag and given to pt's per his request. Pt refused to remove his wedding band. Jason ALAN in [facility] was informed of this.
== END 2023-05-01 10:44 | disposition admitted as inpatient to this hospital (09) ==
PROVIDERS: Internal Medicine; Emergency Provider Emergency Medicine; PCP Physician Assistant
DX: R07.89 Other chest pain (principal); I20.0 Unstable angina; R06.02 Shortness of breath; G40.909 Epilepsy, unspecified, not intractable, without status epilepticus; Z87.891 Personal history of nicotine dependence; Z86.79 Personal history of other diseases of the circulatory system
CPT/HCPCS: 71045; 80053; 84484; 85025; J1644; Q9967

== ENCOUNTER 2023-05-01 10:57 | Observation (INO) | payer MEDICARE, SELFPAY ==
[2023-05-01] VITALS (15 sets, daily range): BP systolic 103–134; BP diastolic 50–69; PULSE 50–83; RESP 16–18; TEMP 36.6–36.7; O2SAT 91–100; BMI 24.6
--- NOTE | 2023-05-01 07:51 | NM_ITS ---
APPROVED REPORT Exam: Nuclear Stress Test Indication: FM HX, C.P., SOB, PALPITATIONS, SYNCOPE, FATIGUE Patient Location: Outpatient Stress Tech: Uma Hdz NM Tech:Anna WattsBENJAMIN RT (R)(N)(M) Ht: 5 ft 11 in Wt: 165 lbs HR: 61 bpm BP: 123/67 mmHg BSA: 1.94 m2 BMI: 23.0 History: FM HX, C.P., SOB, PALPITATIONS, SYNCOPE, FATIGUE Procedure: Patient received 0.4 mg of intravenous Lexiscan, resting heart rate 61 bpm, resting blood pressure 123/67 mmHg, with Lexiscan maximum heart rate achieved was 86 bpm which is % of the maximum predicted heart rate and blood pressure was 110/53 mmHg. PT C/O C.P. WITH LEXISCAN. PT WAS TAKEN TO THE ER AND THEN ON FOR A HEART CATH TODAY. STRESS IMAGES WERE NOT COMPLETED BECAUSE OF THIS Cardiac Stress and Resting SPECT Images: Cardiac Stress and Resting SPECT images were obtained using technetium 99m Myoview 31.3 mCi stress and 10.78 mCi at rest. The patient had persistent chest pain after stress testing. Therefore, he was transferred to the ED. Stress imaging could not be performed. Raw images demonstrate significant diaphragmatic overlap with the cardiac borders. This may affect the diagnostic interpretation of the study findings. Resting images demonstrate a medium-sized perfusion defect in the inferior and inferoseptal LV toussaint. However, this is possibly due to artifact in the setting of diaphramatic attenuation. Gated imaging cannot be performed due to absence of stress imaging. Conclusion: Raw images demonstrate significant diaphragmatic overlap with the cardiac borders. This may affect the diagnostic interpretation of the study findings. Resting images demonstrate a medium-sized perfusion defect in the inferior and inferoseptal LV toussaint. However, this is possibly due to artifact in the setting of diaphramatic attenuation. The patient had persistent chest pain after stress testing. Therefore, he was transferred to the ED. Stress imaging could not be performed. Electronically signed by : Ryann Dalton MD 05/08/2023 12:08:02
--- NOTE | 2023-05-01 09:50 | ECG_ITS ---
APPROVED REPORT Exam: Resting ECG HR:63 bpm ECG Measurements Heart Rate 63 AXES WA 143 P 74 QRSd 97 QRS 60 QT 392 T 54 QTc 399 Conclusion SINUS RHYTHM NORMAL ECG UNCONFIRMED REPORT Electronically signed by : Christofer Murrell MD 05/01/2023 20:08:33
--- NOTE | 2023-05-01 09:52 | CA_ITS ---
APPROVED REPORT Exam: Pharmacologic Technologist: Uma Hdz Ht: 5 ft 10 in Wt: 168 lbs BSA: 1.94 m2 HR: 61 bpm BP: 123/67 mmHg Rhythm: NSR Indications: Chest pain, dyspnea Medical History Medications: Diazepam,,,,, Vitamin D3,,,,, Atorvastatin,,,,, Ibuprofen,,,,, Vitamin D2,,,,, Carbamazepine,,,,, Terbinafine,,,,, Bactrim,,,,, Levetiraretam,,,,, Phenytoin SODIUM,,,,, Stress Test Details Test: LEXISCAN HR Resting HR: 59 bpm Max Heart Rate (APMHR): 162 bpm Max HR Achieved: 87 bpm Target HR (85% APMHR): 138 bpm % of APMHR: 54 Recovery HR: 78 bpm BP Resting BP: 123.0/67.0 mmHg Max BP: 133.0/69.0 mmHg Recovery BP: 129.0/65.0 mmHg ECG Resting ECG: sinus rhythm Stress ECG: No significant ST changes Arrhythmia: None Clinical Exercise duration: 04:03 min Highest Stage Achieved: Stress ECG Conclusion Symptoms: Dyspnea, Chest(pressure, tightness, pain), Left sided neck pain Arrhythmias/Ectopy: None ST-T Changes: No significant ST changes Conclusion: Unremarkable Lexiscan stress test. Persistent chest pain after Lexiscan. Patient sent to Emergency Department for evaluation. Test Summary REST . . . . . . . Resting REST 02:57 . . 59 . 123/ 67 . . Stage 1 . . . . . . . Myoview Injected Stage 1 01:00 . . 77 . . . . Stage 2 . . . . . . . Chest pain chest tightness Stage 2 01:00 . . 82 . 110/ 53 . . Stage 3 01:00 . . 80 . 122/ 54 . . Stage 4 01:00 . . 71 . 126/ 50 . . Stage 4 01:03 . . 71 . 126/ 50 . Stop exercise at 04:03 RECOVERY 01:00 . . 71 . . . . RECOVERY . . . . . . . left neck pain RECOVERY 02:00 . . 69 . 130/ 57 . . RECOVERY . . . . . . . chest tightness RECOVERY 03:00 . . 72 . 132/ 62 . . RECOVERY 04:00 . . 76 . 132/ 62 . . RECOVERY 05:00 . . 68 . 132/ 62 . . RECOVERY 06:00 . . 75 . 133/ 69 . . RECOVERY 07:00 . . 72 . 133/ 69 . . RECOVERY 08:00 . . 78 . 133/ 69 . . RECOVERY 09:00 . . 76 . 129/ 65 . . RECOVERY 10:00 . . 75 . 129/ 65 . . RECOVERY 11:00 . . 83 . 113/ 64 . . RECOVERY 12:00 . . 82 . 113/ 64 . . RECOVERY 13:00 . . 78 . 113/ 64 . . RECOVERY 14:00 . . 83 . 113/ 64 . . RECOVERY 15:00 . . 75 . 113/ 64 . . RECOVERY 16:00 . . 71 . 113/ 64 . . RECOVERY 17:00 . . 76 . 113/ 64 . . RECOVERY 18:00 . . 71 . 106/ 73 . . RECOVERY 18:08 . . 71 . 106/ 73 . . Electronically signed by : Ryann Dalton MD 05/08/2023 12:01:55
--- NOTE | 2023-05-01 11:44 | HMH.PHAINT1 ---
Pharmacy Intervention Comments: MEDICATION RECONCILIATION COMPLETED ON PATIENT USING EXTERNAL FILL HISTORY FROM PHARMACY AND ОЛЕГ REPORT. -DARIEN SALAMANCA, [place]
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
--- NOTE | 2023-05-01 14:24 | PC.NURSE ---
Post cath v/s documented by myself for A WAQAS Bach
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
--- NOTE | 2023-05-01 18:42 | PC.NURSE ---
Patient admitted from quality lab technician today. Patient had no intervention. Vital signs stable. no complaints of pain or discomfort.
[2023-05-02] VITALS: BP 126/63; PULSE 67; PULSE 70; RESP 18; TEMP 36.7; O2SAT 96
--- NOTE | 2023-05-02 03:11 | PC.NURSE ---
Patient voiced to promotion writer when promotion writer entered patients room at 0130 that he was feeling mild pain in his chest and SOB. Rating pain a 2 on pain scale. Lung sounds reassessed with crackles noted to BLL. Crackles not noted on first assessment at 1999. O2 applied at 2L per NC. Manager Fraud notified Ismael PUBLIC AFFAIRS MANAGER of change. Ismael voiced to turn off IV fluids now. IV fluids stopped at 0145. Ismael PUBLIC AFFAIRS MANAGER came to patients room and assessed patient at 0145. New Order for Lasix 40mg IV Push placed. Patient received Lasix as ordered. Manager Fraud educated patient the importance of using the call light to ask for assistance to the restroom explaining the rational on measuring the urine output. Manager Fraud assisted patient to the restroom at 0210 with a output of 500cc of clear yellow urine. Patient now laying in bed with seizure precautions in place as ordered with call light in reach, bed in lowest position with non-skid socks properly in place.
[2023-05-02 04:00] VITALS: BP 122/55; PULSE 55; PULSE 60; RESP 18; TEMP 36.5; O2SAT 97; BMI 24.5
[2023-05-02 07:39] LABS: Anion Gap 14.9 mEq/L (5-15); Blood Urea Nitrogen 14 mg/dl (9-20); Calcium 8.8 mg/dl (8.4-10.2); Carbon Dioxide 29 mmol/L (22.0-30.0); Chloride 100 mmol/L (98-107); Creatinine Clearance Estimated 98 mL/min (50-200); Estimated Glomerular Filt Rate 87 ml/min (>60); GFR (African American) 105 ML/MIN (>60); Glucose 100 mg/dl (74-100); Potassium 3.9 mmoL/L (3.5-5.1); Sodium 140 mmol/L (136-145)
[2023-05-02 08:00] VITALS: BP 133/62; PULSE 56; PULSE 75; RESP 18; TEMP 36.7; O2SAT 99
--- NOTE | 2023-05-02 09:01 | EXP.CARD.PN ---
Subjective Subjective Date: 05/02/23 Time: 08:00 Principal diagnosis: unstable angina Interval history: Doing well this morning. Denies chest pain or shortness of breath. Morning labs reviewed, see cath and echo reports below: 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 Evaluation of noncardiac symptoms 2. Is reasonable to empirically treat with beta-blockers and or diltiazem or verapamil given the myocardial bridge. Echo 05/01/2023 Conclusion Normal LV systolic function. Moderate RV dilation with mild reduction in RV systolic function. Mild MR. Exam Data for Last 24 hours Vital signs and Labs for Last 24 Hours: Temp Pulse Resp BP Pulse Ox O2 Del Method O2 Flow Rate 98.1 F 56 L 18 133/62 99 Nasal Cannula 3 05/02/23 08:00 05/02/23 08:00 05/02/23 08:00 05/02/23 08:00 05/02/23 08:00 05/02/23 08:00 05/02/23 08:00 Laboratory Results - last 24 hr 05/02/23 06:40: Sodium 140, Potassium 3.9, Chloride 100, Carbon Dioxide 29, Anion Gap 14.9, BUN 14 D, Creatinine 0.90, Estimated Creat Clear 98, Estimated GFR 87, Est GFR ( Amer) 105, Glucose 100 D, Calcium 8.8 I & O for Last 24 hours: Intake & Output 04/29/23 04/30/23 05/01/23 05/02/23 23:59 23:59 23:59 23:59 Intake Total 480 / 480 240 / 240 Output Total 400 / 700 1999 / 1999 Balance 80 / -220 -1760 / -1760 Weight 171 lb 9 oz 171 lb 8.314 oz Constitutional Constitutional: no acute distress *Routine Respiratory Exam Respiratory: Present CTA bilaterally and symmetric chest movement *Routine Cardiovascular Exam Cardiovascular: Present RRR, Normal S1 and Normal S2 *Routine Abdominal Exam Abdominal: Present soft and normoactive bowel sounds; Absent tenderness *Routine Extremities Exam Extremities: Present full ROM and normal capillary refill; Absent edema *Routine Skin Exam Skin: Present intact, dry and warm Detailed Neck Exam: Thyroids Thyroid: Absent bruit Progress Note: A&P Assessment and plan (1) Shortness of breath: Status: Acute (2) Angina pectoris, unstable: Status: Acute Assessment and Plan Assessment and Plan for All Diagnoses:: Unstable angina -Serial troponin negative -EKG does show depressed ST segment in leads II, III, aVF -History of progressive chest pain present with activity and at rest -Patient was taken to Proof Technician Helper and underwent left heart catheterization, see report above. -Echo pending 05/02/2023 update: Status post left heart cath 05/01/2023. 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 Echocardiogram shows normal LV systolic function with moderate RV dilation and mild reduction in RV systolic function. Mild MR. CV summary 05/02/2023: CV stable for discharge home.Please have patient follow-up in cardiology clinic in 1 week for recheck.
--- NOTE | 2023-05-03 16:54 | CARE MANAGER ---
Contacted patient related to hospital discharge. Patient states he has no energy and is still short of breath. He is aware of follow up appointments. No new medications noted. Discussed keeping follow up appointments, but if symptoms worsen or persist reaching out for earlier appointment or coming to ER to be evaluated. WAQAS Del Valle
--- NOTE | 2023-05-20 16:42 | EXP.DC.SUM ---
General Admission date:: 05/01/23 Discharge date: 05/02/23 HPI HPI HPI: Patient is a 58-year-old male with past medical history of seizure disorder hypertension vertigo who presented to hospital for chest pain and dyspnea on exertion. According to the patient he was having a stress test and started having chest pain shortness of breath. Patient mentioned his chest pain radiated to the jaw, he received nitroglycerin with some relief of chest pain. He was evaluated by cardiology and was recommended to undergo cardiac cath. Patient otherwise denied fevers chills diarrhea constipation dysuria. Hospital Course Hospital Course Hospital Course: see same date H&P Patient is a 58-year-old male with past medical history of seizure disorder hypertension vertigo who presented to hospital for chest pain and dyspnea on exertion. According to the patient he was having a stress test and started having chest pain shortness of breath. Patient mentioned his chest pain radiated to the jaw, he received nitroglycerin with some relief of chest pain. He was evaluated by cardiology and was recommended to undergo cardiac cath. Patient otherwise denied fevers chills diarrhea constipation dysuria. Assessment Chest pain likely unstable angina Hypertension Seizure disorder Vertigo Plan Status postcardiac cath, no significant stenosis seen in dual discharged home per cardiology recommendations f/u as OP Exam Data for Last 24 hours Vital signs and Labs for Last 24 Hours: Temp Pulse Resp BP Pulse Ox O2 Del Method O2 Flow Rate 98.1 F 56 L 18 133/62 99 Nasal Cannula 2 05/02/23 08:00 05/02/23 08:00 05/02/23 08:00 05/02/23 08:00 05/02/23 08:00 05/02/23 09:00 05/02/23 09:00 Constitutional Constitutional: no acute distress *Routine HEENT Exam Head: Present normocephalic Eye: Present EOMI and PERRL ENT: Present mucous membranes moist *Routine Neck Exam Neck: Present supple; Absent lymphadenopathy *Routine Respiratory Exam Respiratory: Present CTA bilaterally *Routine Cardiovascular Exam Cardiovascular: Present RRR *Routine Abdominal Exam Abdominal: Present soft and normoactive bowel sounds; Absent tenderness *Routine Extremities Exam Extremities: Absent cyanosis, clubbing or edema *Routine Skin Exam Skin: Present warm; Absent rash *Routine Neurological Exam Neurological: Present alert and oriented X3 DS: Diagnosis Discharge Diagnosis (1) Shortness of breath: Status: Inactive Code(s): R06.02 - Shortness of breath (2) Angina pectoris, unstable: Status: Inactive Code(s): I20.0 - Unstable angina Meds Home Medications and Allergies Home Medications Medication Instructions Recorded Confirmed Type atorvastatin 10 mg tablet 10 mg PO DAILY Cholesterol 05/01/23 05/08/23 History carbamazepine 200 mg tablet 400 mg PO BID seizures 05/01/23 05/08/23 History cholecalciferol (vitamin D3) 50 50 mcg PO DAILY Supplement 05/01/23 05/08/23 History mcg (2,000 unit) capsule diazepam 5 mg tablet 5 mg PO HSP PRN Seizures 05/01/23 05/08/23 History ibuprofen 800 mg tablet 800 mg PO Q8H PRN Back Pain 05/01/23 05/08/23 History levetiracetam 750 mg tablet 1,500 mg PO BID seizures 05/01/23 05/08/23 History phenytoin sodium extended 100 mg 200 mg PO BID Seizures 05/01/23 05/08/23 History capsule metoprolol succinate 25 mg 12.5 mg PO DAILY #30 tabs 05/08/23 05/08/23 Rx tablet,extended release 24 hr (Toprol XL) New Prescriptions to Start Prescriptions: Allergies Allergy/AdvReac Type Severity Reaction Status Date / Time sumatriptan [From IMITREX] Allergy Unknown Verified 05/08/23 09:48 isosorbide AdvReac Mild headache Uncoded 05/08/23 10:03 Discharge Plan Disposition Patient Disposition: Home, Self-Care Condition: Good Follow up Plan Follow up with: Junie Mason PA [Primary Care Provider] - 05/09/23 9:45 am Blayne Jay MD [Staff Physician] - 05/08/23 9:30 am P
== END 2023-05-02 12:00 | disposition home or self-care (01) ==
LOC: 2ND 10:57
PROVIDERS: Admitting Provider Internal Medicine; PCP Physician Assistant; Visit Provider Internal Medicine
DX: I25.110 Atherosclerotic heart disease of native coronary artery with unstable angina pectoris (principal); I10 Essential (primary) hypertension; Z87.891 Personal history of nicotine dependence; Z79.899 Other long term (current) drug therapy; G40.909 Epilepsy, unspecified, not intractable, without status epilepticus; R06.89 Other abnormalities of breathing; I34.0 Nonrheumatic mitral (valve) insufficiency
CPT/HCPCS: G0379; 36415; 71045; 78451; 80048; 80053; 84484; 85025; 93005; 93017; 93018; 93458; 99152; A9502; C1725; C1769; G0378; J1644; J2785; Q9967

== ENCOUNTER 2023-06-21 07:36 | Outpatient (CLI) | payer MEDICARE, SELFPAY ==
[2023-06-21 19:45] LABS: Amphetamine/Metha Screen,Urine Negative ng/ml (<1000); Barbiturates Screen,Urine Negative ng/ml (<200); Benzodiazepines Screen,Urine Positive ng/ml (<200); Cannabinoid Screen,Urine Negative ng/ml (<50); Cocaine Screen,Urine Negative ng/ml (<300); Methadone Screen,Urine Negative ng/ml (<300); Opiate Screen,Urine Negative ng/ml (<300); Phencyclidine Screen,Urine Negative ng/ml (<25)
== END 2023-06-21 23:59 ==
LOC: LAB.DROPOF 06-22 07:37
PROVIDERS: PCP Family Medicine; Visit Provider Family Medicine
DX: Z79.899 Other long term (current) drug therapy (principal)
CPT/HCPCS: 80307

== ENCOUNTER 2023-08-29 20:47 | Outpatient (CLI) | payer MEDICARE, SELFPAY | END 2023-08-29 23:59 | LOC: LAB.DROPOF 20:48 | PROVIDERS: PCP Physician Assistant; Visit Provider Physician Assistant | DX: N39.0 Urinary tract infection, site not specified (principal) | CPT/HCPCS: 87086 ==

== ENCOUNTER 2024-01-03 13:59 | Outpatient (CLI) | payer MEDICARE, SELFPAY ==
--- NOTE | 2024-01-03 14:21 | ECG_ITS ---
APPROVED REPORT Exam: Resting ECG HR:61 bpm ECG Measurements Heart Rate 61 AXES NM 149 P 70 QRSd 102 QRS 38 QT 386 T 40 QTc 389 Conclusion SINUS RHYTHM NORMAL ECG UNCONFIRMED REPORT Electronically signed by : Christofer Murrell MD 01/05/2024 10:54:44
[2024-01-03 14:56] LABS: Basophils % 0.8 % (0.1-2.0); Eosinophils # 0.2 K/mm3 (0.0-0.4); Eosinophils % 3.6 % (0.1-12.0); Hematocrit 32.6 % (42.0-52.0); Hemoglobin 12.7 g/dL (14.1-18.0); Lymphocytes # 1.8 K/mm3 (0.7-4.5); Lymphocytes % 30.2 % (10-50); Mean Corpuscular HGB Conc 39.1 g/dL (31.8-35.4); Mean Corpuscular Hemoglobin 37.7 pg (27.0-31.2); Mean Corpuscular Volume 96.4 fl (80-94); Mean Platelet Volume 7.7 fl (7.4-10.4); Monocytes # 0.4 K/mm3 (0.1-1.0); Monocytes % 6.5 % (1.7-9.3); Neutrophils # 3.5 K/mm3 (1.8-7.8); Platelet Count 242 K/mm3 (142-424); Red Blood Count 3.38 M/mm3 (4.60-6.20); Red Cell Distribution Width 13.7 % (11.5-17.5); White Blood Count 5.9 K/mm3 (4.8-10.8)
[2024-01-03 15:12] LABS: Chloride 107 mmol/L (98-107); Potassium 4.3 mmoL/L (3.5-5.1); Sodium 141 mmol/L (136-145)
[2024-01-03 15:15] LABS: Anion Gap 9.3 mEq/L (5-15); Blood Urea Nitrogen 10 mg/dl (9-20); Carbon Dioxide 29 mmol/L (22.0-30.0); Estimated Glomerular Filt Rate 99 ml/min (>60); GFR (African American) 120 ML/MIN (>60); Glucose 92 mg/dl (74-100)
== END 2024-01-03 23:59 | disposition home or self-care (01) ==
LOC: LAB 14:02
PROVIDERS: PCP Physician Assistant; Visit Provider Student in an Organized Health Care Education/Training Program
DX: Z01.818 Encounter for other preprocedural examination (principal); J34.2 Deviated nasal septum
CPT/HCPCS: 36415; 80048; 85025; 93005

== ENCOUNTER 2024-01-08 07:58 | Day surgery (SDC) | payer MEDICARE, SELFPAY ==
[2024-01-08] VITALS (11 sets, daily range): BP systolic 120–142; BP diastolic 58–80; PULSE 62–69; RESP 14–19; TEMP 35.8–36.4; O2SAT 95–100; BMI 23.0
[2024-01-08] MEDS: LACTATED RINGERS 1000ML 1,000 ML 25 ML IV ×2 (08:41→13:44)
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
[2024-01-08] MEDS: LIDOCAINE 1% W/EPI 1:100,000 20ML VIAL 20 ML (10:27)
[2024-01-08] MEDS: OXYMETAZOLINE NASAL SPRAY 0.05% 15ML 15 ML NS (11:01)
[2024-01-08] MEDS: CEFAZOLIN SODIUM 2 GM in 0.9 % SODIUM CHLORIDE 100 ML IV (11:02)
--- NOTE | 2024-01-08 13:10 | P.OP_ITS ---
Date of procedure: 01/08/24 Pre-op Diagnosis:: deviated septum nasal valve collapse turbinate hypertrophy Post-op Diagnosis:: same Procedure performed:: open septoplasty, open repair nasal valve, inferior turbinate resection Surgeon:: Kolton Meier MD Anesthesia: GETA Estimated blood loss (mL): 10 Operative findings:: deviated septum nasal valve collapse turbinate hypertrophy Operative note:: The patient was brought to the OR, laid in supine position, and general anesthesia was induced. Patient was prepped and draped in usual fashion. An inverted V incision was marked out on his columella. His nose was injected with lidocaine with epinephrine 1-100,000 as well as his septum and the heads of his inferior turbinates. Patient had a severe septal deviation to the left anteriorly and then to the right posteriorly with a likely fracture in the anterior aspect of the septum. Using a 15 blade I made the incision through the inverted V and carried this around the columella to the marginal incisions. Using short sharp scissors I meticulously dissected out first the medial crura of the lower lateral cartilages, and then came around the lateral crura of the lower lateral cartilages completing the marginal incisions. I then dissected down onto the superior aspect of the septum and dissected this up superiorly along the dorsal aspect of his nose. I then began to elevate the mucosa off the left side of the patient's septum. He had a fracture approximately a centimeter back which deviated the septum into the left side of the nose completely occluding it and then brought the septum back to the right posteriorly complet parker occluding the right side behind it. He also had a severely deviated left maxillary crest anteriorly, and a bony septal deviation to the right posteriorly. I elevated the mucosa off the right side of the septum as well. I disarticulate the bony cartilaginous junction posteriorly. I then used the existing fracture as the anterior aspect of the cartilaginous excision and then made a releasing cut through the superior aspect of the cartilage more posteriorly taking care to leave over a centimeter of half of cartilage on the dorsal aspect of the nose to support the nose. Cartilage was placed on the back table. Releasing the cut was made through the superior aspect of the bony septum and then the bony septal deviations were excised. The rongour was used to remove the deviated maxillary crest. Given the fracture through the cartilaginous septum and how anterior it was I elected to place a columellar strut on the left and an extended toy assembler wood graft on the right and secured these to the residual cartilaginous septum as well as his upper lateral cartilages. These maneuvers gave added support to the patient's nose. The septal flaps were then reapproximated with a 4-0 quilting suture. The inverted the incision was closed with Monocryl as well as fast gut and the marginal incision closed with a chromic. I then used the 0 degree rigid scope to examine the patient's turbinates. Patient had significantly hypertrophied tissue coming off the posterior aspect of his inferior turbinates as well as the head of his left middle turbinate. This was resected and sent for pathology. Each inferior turbinate was then outfractured. His nose and mouth was then thoroughly irrigated and suctioned out. Chin splints were fashion across the septum and Steri-Strips applied externally. He was then turned back over to anesthesia to be awoken and extubated. Condition: stable Disposition: PACU Complications:: none
--- NOTE | 2024-01-08 13:18 | P.PNANES_ITS ---
[facility] Anesthesia Record Part I Anesthesia Record I Intake, IV Amount: 850 Hydration: Adequate Estimated blood loss (mL): 25 Urine output (mL): 0 Blood Products used (#): none Blood Pressure: 139/63 SaO2: 95 Pulse Rate: 66 Airway Patency: Patent Respiratory Rate: 16 Temperature: 96.5 F Patient is:: Awake (Talking) and Stable Stable to PACU at:: 13:18
[2024-01-08] MEDS: MORPHINE 2MG/ML SYRINGE 2 MG IV ×4 (13:25→13:48)
[2024-01-08] MEDS: ONDANSETRON 4MG/2ML VIAL 4 MG IV (13:26)
--- NOTE | 2024-01-08 14:22 | P.PNANES_ITS ---
[facility] Anesthesia Record Part II Anesthesia Record Part II Discharge Time: 13:51 Destination: Surgical Day Care (OP Surgery) PACU nurse assessment reviewed?: Yes Patient Condition:: Good Anesthesia Complications:: None Swallowing reflex intact?: Yes Airway Patency: Patent Cyanosis?: No Blood Pressure: 132/62 SaO2: 99 Respiratory Rate: 19 Pulse Rate: 67 Temperature: 97.6 F Mental Status: Alert & Oriented Pain level:: 5 Nausea and/or vomitting:: None Intake, IV Amount: 0 Hydration: Adequate
== END 2024-01-08 14:26 | disposition home or self-care (01) ==
PROVIDERS: PCP Physician Assistant; Visit Provider Student in an Organized Health Care Education/Training Program
PROC: (CPT 30520; principal; 2024-01-08 09:30)
DX: J34.2 Deviated nasal septum (principal); J34.89 Other specified disorders of nose and nasal sinuses; J34.3 Hypertrophy of nasal turbinates; M95.0 Acquired deformity of nose
CPT/HCPCS: 30130; 30465; 30520; J3490; J0690; J1100; J1885; J2250; J2270; J2405; J3010; J7120

== ENCOUNTER 2025-01-08 12:02 | Outpatient (CLI) | payer MEDICARE, SELFPAY ==
[2025-01-08 19:13] LABS: Hematocrit 37.7 % (42.0-52.0); Hemoglobin 12.6 g/dL (14.1-18.0); Immature Granulocytes % 0.2 %; Mean Corpuscular HGB Conc 33.4 g/dL (31.8-35.4); Mean Corpuscular Hemoglobin 30.9 pg (27.0-31.2); Mean Corpuscular Volume 92.4 fl (80-94); Nucleated Red Blood Cells % 0 %; Platelet Count 166 K/mm3 (142-424); Red Blood Count 4.08 M/mm3 (4.60-6.20); Red Cell Distribution Width-SD 41.3 fL; White Blood Count 4.4 K/mm3 (4.8-10.8)
[2025-01-08 19:39] LABS: Alanine Aminotransferase 14 U/L (12-78); Albumin Level 5.0 g/dl (3.5-5.0); Albumin/Globulin Ratio 1.7 (1.1-1.8); Alkaline Phosphatase 92 U/L (38-126); Anion Gap 11.7 mEq/L (5-15); Aspartate Amino Transferase 31 U/L (17-59); Bilirubin,Total 0.5 mg/dl (0.2-1.3); Blood Urea Nitrogen 8 mg/dl (9-20); Calcium 9.1 mg/dl (8.4-10.2); Carbon Dioxide 29 mmol/L (22.0-30.0); Chloride 102 mmol/L (98-107); Cholesterol 215 mg/dl (140-200); Creatinine,Serum 0.70 mg/dl (0.66-1.25); Estimated Glomerular Filt Rate 115 ml/min (>60); GFR (African American) 139 ML/MIN (>60); Globulin 2.9 g/dL (1.3-3.2); Glucose 96 mg/dl (74-100); HDL Cholesterol 48 mg/dl (40-60); Potassium 4.7 mmoL/L (3.5-5.1); Sodium 138 mmol/L (136-145); Total Protein,Serum 7.9 g/dl (6.3-8.2); Triglycerides 69 mg/dl (30-150)
[2025-01-08 19:41] LABS: Phenytoin (Dilantin) < 3.0 ug/ml (10-20)
[2025-01-08 19:53] LABS: 25-OH Vitamin D, Total 34.8 ng/mL (30-100)
[2025-01-08 20:08] LABS: Thyroid Stimulating Hormone 0.91 uIU/mL (0.465-4.68)
--- OUTSIDE RECORDS SUMMARY | 2025-01-12 12:04 | XMS_ITS | Clinical Summary ---
Author Organization Healthcare Address [address] [place] [address] Care Team Providers Care Mortar Man Name Role Phone Stephan Da Silva MD Primary Care Provider [phone] Family History Medical History Relation Name Comments Breast cancer Mother Breast cancer Other Relation Name Status Comments Mother Other Social History Tobacco Use Types Packs/Day Years Used Date Smoking Tobacco: Every Day Alcohol Use Standard Drinks/Week Comments No 0 (1 standard drink = 0.6 oz pur e alcohol) Sex and Gender Information Value Date Recorded Sex Assigned at Male 08/06/2024 2:58 PM EST Legal Sex Male 7:52 PM EDT Gender Identity Not on file Sexual Orientation Not on file Last Filed Vital Signs Vital Sign Reading Time Taken Comments Blood Pressure - - Pulse - - Temperature - - Respiratory Rate - - Oxygen Saturation - - Inhaled Oxygen Concentration - - Weight 71.9 kg (158 lb 8.2 oz) 03/10/2015 12:07 PM EDT Height 179.1 cm (5' 10.5 ) 03/10/2015 12:07 PM E DT Body Mass Index 22.42 03/10/2015 12:07 PM EDT Plan of Treatment Health Maintenance Due Date Last Done Comments [facility]-Depression Screening 1965 [facility]-Infant/Child/Adol SDOH Screenings 1965 [facility]- SDOH Screenings 1983 [facility]-Adult SDOH Screenings 1983 [facility]-DTaP,Tdap,and Td Vaccine s (1 - Tdap) 01/03/1984 CT Colonography 2010 Colonoscopy 2010 FIT-DNA 2010 FIT 2010 FOBT 2010 Sigmoidoscopy 2010 [facility]-Colorectal Cancer Screening 2010 [facility]-Pneumococcal Vaccine: 50 + Years (1 of 1 - PCV) 2015 [facility]-Zoster Vaccines (1 of 2) 2015 YRF-EMINR-69 Vaccine (1 - 20 24-25 season) 2024 [facility]-Influenza Vaccine (#1) 2025 [facility]-RSV Vaccine: 60+ Years o r (1 - 1-dose 75+ series) 01/03/2040 HPV Vaccines Aged Out No longer eligi ble based on patient's age to complete this topic [facility]-HIB Vaccines Aged Out No longer e ligible based on patient's age to complete this topic [facility]-Hepatitis A Vaccines Aged Out No longer eligible based on patient's age to complete this topic [facility]-IPV Vaccines Aged Out No longer e ligible based on patient's age to complete this topic [facility]-Rotavirus Vaccines Aged Out No lo nger eligible based on patient's age to complete this topic Insurance [employer] MEDICARE Care Teams Mortar Man Relationship Specialty Start Date End Date Stephan Da Silva MD [id number] [phone] PCP - General 10/29/20
== END 2025-01-08 23:59 | disposition home or self-care (01) ==
LOC: LAB.DROPOF 01-12 12:03
PROVIDERS: PCP Family Medicine; Visit Provider Family Medicine
DX: G40.909 Epilepsy, unspecified, not intractable, without status epilepticus (principal); I10 Essential (primary) hypertension; E55.9 Vitamin D deficiency, unspecified; Z12.5 Encounter for screening for malignant neoplasm of prostate; E78.5 Hyperlipidemia, unspecified
CPT/HCPCS: 80053; 80061; 80177; 80185; 82306; 84443; 85025; G0103